=== PATIENT | male | born 1965 | race Caucasian/White ===

== ENCOUNTER 2019-11-09 13:06 | Outpatient (CLI) | payer BC, SELFPAY ==
--- NOTE | 2019-11-09 13:13 | XR_ITS ---
WS: [id number] Right knee, 2 views, 11/09/2019 Clinical Data: right knee pain Comparison: None. Findings: No fractures or dislocations are seen. The joint spaces are normal. The patella is intact. The soft t issues are unremarkable. There is a small exostosis of the medial proximal tibia at the diametaphyseal junction which may be s econdary to an old injury. XR/XR knee RT 1-2V [id number] Impression: Negative right knee.
--- NOTE | 2019-11-09 13:13 | XR_ITS ---
WS: [id number] Cervical spine, 3 views, 11/09/2019 Clinical Data: cervical radiculopathy Comparison: Lateral cervical spine, 05/01/2015. Findings: No compression fractures are seen. There is an anterior cervical disc fusion at C5-C7. Ther e is obliteration of the C5-C6 disc. Anterior inferior osteoarthritic spurring of the C3 and C4 verte bral bodies is noted. No prevertebral soft tissue swelling is present. The odontoid is normal. There is loss of the normal lordotic curvature. Soft tissues of neck in the lung apices are unremarkable. XR/XR cervical spine 3V* [id number] Impression: 1. Intact anterior cervical disc fusion at C5-C6 with obliteration of the disc. 2. Anterior inferior osteoarthritic spurring of the C3 and C4 vertebral bodies.
--- NOTE | 2019-11-09 13:13 | XR_ITS ---
WS: [id number] Left shoulder, 3 views, 11/09/2019 Clinical Data: pain Comparison: None. Findings: No fractures or dislocations are seen. The AC joint is normal. The adjacent left clavicle, left scapu la and ribs are normal. The soft tissues are unremarkable. XR/XR shoulder LT min 2V* [id number] Impression: Negative left shoulder.
== END 2019-11-09 13:07 | disposition home or self-care (01) ==
PROVIDERS: Family Provider Nurse Practitioner Family; PCP Family Medicine; Visit Provider Family Medicine
DX: M54.12 Radiculopathy, cervical region (principal); M47.892 Other spondylosis, cervical region; M25.561 Pain in right knee; M25.512 Pain in left shoulder; Z98.1 Arthrodesis status
CPT/HCPCS: 72040; 73030; 73560

== ENCOUNTER → 2020-04-23 09:18 | Outpatient (BNVA) | payer BC, SELFPAY | PROVIDERS: Family Provider Nurse Practitioner Family; PCP Family Medicine; Visit Provider Nurse Practitioner Family | DX: R31.9 Hematuria, unspecified (principal) | CPT/HCPCS: 81000 ==

== ENCOUNTER 2020-05-01 07:40 | Outpatient (CLI) | payer BC, SELFPAY ==
--- NOTE | 2020-05-01 08:00 | XR_ITS ---
WS: [id number] EXAM: ABDOMINAL KUB DATE OF EXAMINATION: 05/01/2020, 0 754 hour COMPARISON: Abdominal KUB from 03/28/2015 HISTORY: Patient is 55 years old with follow-up kidney stone. FINDINGS: Bowel gas pattern is normal. There are 2 small flecks of calcification in 2 locations may be a millim eter or 2 in size each in the upper aspect of the right kidney silhouette. Not seen on the prior exam . There is a calcification overlying the area of the left kidney silhouette superimposed over the T12 rib felt to represent a new calcification since the prior examination. Whether this is in the bowel or kidney is uncertain. Not quite a centimeter in size. No calcifications are seen over the course of the ureters other than what are considered to be phleboliths in the deep pelvis. XR/XR KUB [id number] IMPRESSION: 2 tiny flecks of calcifications overlying the upper right kidney silhouette. Ne w calcification overlying the left kidney silhouette superimposed overlying the left T12 rib about 1 cm in size. Question if this is in the bowel or kidney.
== END 2020-05-01 07:41 | disposition home or self-care (01) ==
PROVIDERS: PCP Nurse Practitioner Family; Visit Provider Nurse Practitioner Family
DX: Z87.442 Personal history of urinary calculi (principal); N20.0 Calculus of kidney
CPT/HCPCS: 74018; 80053; 81001; 88112

== ENCOUNTER → 2020-08-19 15:55 | Outpatient (BNVA) | payer BC, SELFPAY | PROVIDERS: PCP Nurse Practitioner Family; Referring Provider Nurse Practitioner Family; Visit Provider Podiatrist Foot & Ankle Surgery | DX: M19.072 Primary osteoarthritis, left ankle and foot (principal); M79.672 Pain in left foot | CPT/HCPCS: 73630 ==

== ENCOUNTER → 2020-09-16 10:11 | Outpatient (BNVA) | payer BC, SELFPAY | PROVIDERS: PCP Nurse Practitioner Family; Visit Provider Nurse Practitioner | DX: M54.9 Dorsalgia, unspecified (principal); R31.0 Gross hematuria | CPT/HCPCS: 81000; 87086 ==

== ENCOUNTER → 2021-02-28 14:59 | Outpatient (BNVA) | payer BC, SELFPAY | PROVIDERS: PCP Nurse Practitioner Family; Visit Provider Nurse Practitioner | DX: R39.9 Unspecified symptoms and signs involving the genitourinary system (principal) | CPT/HCPCS: 81000 ==

== ENCOUNTER 2021-05-21 10:17 | Outpatient (CLI) | payer BC, SELFPAY ==
--- NOTE | 2021-05-21 10:41 | XR_ITS ---
WS: [id number] KUB, AP view, 05/21/2021 Clinical Data: Abdominal pain, constipation Comparison: KUB, 05/01/2020. Findings: No abnormal intraabdominal masses are seen. There is no dilatated small bowel or evidence of obstruc tion. A faint calcification overlying the left kidney is unchanged. There may be a faint calcification over lying the right kidney XR/XR KUB [id number] Impression: Questionable bilateral renal calcifications.
== END 2021-05-21 10:18 | disposition home or self-care (01) ==
PROVIDERS: PCP Family Medicine Adult Medicine; Visit Provider Family Medicine
DX: R10.9 Unspecified abdominal pain (principal); K59.00 Constipation, unspecified; N20.0 Calculus of kidney
CPT/HCPCS: 74018

== ENCOUNTER → 2021-09-02 10:29 | Outpatient (BNVA) | payer BC, SELFPAY | PROVIDERS: PCP Family Medicine Adult Medicine; Visit Provider Nurse Practitioner Family | DX: Z20.822 Contact with and (suspected) exposure to COVID-19 (principal) | CPT/HCPCS: 87635 ==

== ENCOUNTER → 2021-09-09 10:41 | Outpatient (BNVA) | payer BC, SELFPAY | PROVIDERS: PCP Family Medicine Adult Medicine; Visit Provider Family Medicine Adult Medicine | DX: N20.0 Calculus of kidney (principal) | CPT/HCPCS: 81000 ==

== ENCOUNTER → 2021-09-10 07:22 | Outpatient (BNVA) | payer BC, SELFPAY | PROVIDERS: PCP Family Medicine Adult Medicine; Visit Provider Family Medicine Adult Medicine | DX: N20.0 Calculus of kidney (principal); E11.69 Type 2 diabetes mellitus with other specified complication; E66.9 Obesity, unspecified; E66.01 Morbid (severe) obesity due to excess calories; Z68.43 Body mass index [BMI] 50.0-59.9, adult; I10 Essential (primary) hypertension; N20.9 Urinary calculus, unspecified | CPT/HCPCS: 36416; 82962 ==

== ENCOUNTER 2021-12-10 11:57 | Emergency (ER) | payer BC, SELFPAY ==
[2021-12-10 12:32] VITALS: BP 182/101; PULSE 71; RESP 16; TEMP 36.6; O2SAT 96
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
[2021-12-10 12:50] VITALS: BP 182/101; PULSE 71; RESP 16; O2SAT 96
--- NOTE | 2021-12-10 12:52 | XR_ITS ---
WS: [id number] Cervical spine, 3 views, 12/10/2021 Clinical Data: neck pain Comparison: Cervical spine, 11/09/2019. Findings: No compression fractures are seen. The anterior cervical disc fusion at C5-6-6 remains stab le and there is loss of the disc space. There is anterior osteophyte formation at C3 and C4. The soft tissues of the neck and the lung apices are normal. XR/XR cervical spine 3V* [id number] Impression: 1. Intact anterior cervical disc fusion C5-C6. 2. Osteophytes C3 and C4.
== END 2021-12-10 13:43 | disposition home or self-care (01) ==
PROVIDERS: Emergency Provider Family Medicine; PCP Family Medicine Adult Medicine
DX: M54.2 Cervicalgia (principal); V57.0XXA Driver of pick-up truck or van injured in collision with fixed or stationary object in nontraffic accident, initial encounter; Z79.51 Long term (current) use of inhaled steroids; Z79.82 Long term (current) use of aspirin
CPT/HCPCS: 72040; 99282

== ENCOUNTER → 2022-01-30 16:24 | Outpatient (BNVA) | payer BC, SELFPAY | PROVIDERS: PCP Family Medicine Adult Medicine; Visit Provider Family Medicine Adult Medicine | DX: N39.0 Urinary tract infection, site not specified (principal) | CPT/HCPCS: 81000 ==

== ENCOUNTER 2022-04-22 16:29 | Emergency (ER) | payer BC, SELFPAY ==
--- NOTE | 2022-04-22 16:47 | ECG_ITS ---
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 Measurements Intervals [place] Rate: 71 P: 23 LA: 175 QRS: -43 QRSD: 114 T: 19 QT: 403 QTc: 441 Interpretive Statements SINUS RHYTHM LEFT AXIS DEVIATION [QRS AXIS < -30] PATTERN CONSISTENT WITH PULMONARY DISEASE MODERATE INTRAVENTRICULAR CONDUCTION DELAY [110+ ms QRS DURATION] No previous ECG available for comparison Electronically Signed On 04-22-2022 19:43:18 CDT by Bebeto Cano M.D. [id number] f
== END 2022-04-22 17:15 | disposition left against medical advice (07) ==
PROVIDERS: Emergency Provider Family Medicine; PCP Family Medicine Adult Medicine
DX: Z53.21 Procedure and treatment not carried out due to patient leaving prior to being seen by health care provider (principal); R07.9 Chest pain, unspecified
CPT/HCPCS: 93005

== ENCOUNTER 2022-04-26 09:47 | Emergency (ER) | payer BC, SELFPAY ==
[2022-04-26 10:00] VITALS: BP 204/112; PULSE 73; RESP 18; TEMP 36.6; O2SAT 95; BMI 45.4
[2022-04-26 10:03] VITALS: BP 131/67; PULSE 71; RESP 13
--- NOTE | 2022-04-26 10:03 | PC.NURSE ---
AO x4, C/O R hip/upper leg pain like siatic pain . then reported a fibalation in chest. denies sob and chest pain
--- NOTE | 2022-04-26 10:09 | PC.NURSE ---
patient stated leg pain started after walking dog and dog pulled leash. patient unsure if heart caused leg pain. HCP at bedside, reviewed EKG
--- NOTE | 2022-04-26 10:12 | ECG_ITS ---
[facility] Test Date: 2022-04-26 Pat Name: Katharine Mane Department: Room: Gender: Male Applications Coordinator: : 1965 Requested By: Jeffrey Kraft Order Number: [id number] Janet MD: Bebeto Cano M.D. Measurements Intervals [place] Rate: 76 P: 25 PA: 183 QRS: -41 QRSD: 102 T: 18 QT: 398 QTc: 449 Interpretive Statements SINUS RHYTHM LEFT AXIS DEVIATION [QRS AXIS < -30] PATTERN CONSISTENT WITH PULMONARY DISEASE Compared to ECG 04/22/2022 16:54:34 Intraventricular conduction delay no longer present Electronically Signed On 04-26-2022 13:16:48 CDT by Bebeto Cano M.D. [id number] f
[2022-04-26 10:18] VITALS: PULSE 67; RESP 19
--- NOTE | 2022-04-26 10:43 | W.ED.CHESTPA ---
HPI - Chest Pain General: Chief Complaint: Chest Pain Stated Complaint: Right leg pain Time Seen by Provider: 04/26/22 09:54 History of Present Illness: 56-year-old male presents with pain. Patient reports that couple days ago he was walking his dog jerked and he had pain in his right leg with some pain that shot down the leg and now he has pain in both legs. Patient reports he is concerned it might be his heart causing his chest pain because he was told his EKG was not normal patient was seen on 04/22/2022 with a multitude of symptoms with chest pain/discomfort that been going on for 4 weeks. At that time his EKG showed normal sinus rhythm with a pulmonary disease pattern. Patient has known pulmonary disease COPD. Patient had no acute cardiac changes. Patient's main complaint today is his low back pain. Associated symptoms: Deny abdominal pain, dyspnea, fever(s), nausea, palpitations or vomiting Review of Systems Const: Denies: fever(s) or chills Eyes: Denies: change in vision ENMT: Denies: throat pain or ear or mastoid pain Card: Denies: palpitations, irregular heart rhythm, edema or swelling of feet/ankles Resp: Denies: dyspnea, productive cough or wheezing GI: Denies: abdominal pain, nausea or vomiting Musc: Reports: back pain Skin/Breast: Denies: rash or pruritus Neuro: Denies: headache(s), numbness in extremities or weakness in extremities All/Imm: Denies: urticaria PFSH ED PFSH: Medical History (Updated 04/26/22 @ 11:57 by Jeffrey Kraft DO) Allergic rhinitis due to allergen Anxiety disorder, unspecified Arthritis Chronic gastroesophageal reflux disease Constipation due to slow transit COVID-19 COVID Positive 09/02/2021 Diabetes mellitus type 2 in obese Diabetic neuropathy Diverticulosis ECG abnormal Gross hematuria Hallux rigidus Hx of renal calculi Hypertension Left shoulder pain Memory changes Morbid obesity with BMI of 50.0-59.9, adult Periodic limb movement disorder (PLMD) Renal insufficiency Rotator cuff disorder Strain of muscle and tendon of back wall of thorax, initial encounter Systemic candidiasis Umbilical hernia Urolithiasis UTI (urinary tract infection) 09/03/2021 Cipro 750 BID UTI (urinary tract infection) Ventral hernia Surgical History History of carpal tunnel surgery of left wrist 2010 Hx of hernia repair Hx of knee surgery growth removal Hx of neck surgery Family History Grandmother Cancer Breast Osteoarthritis Mother Cancer Lung Hypertension Bleeding disorder Heart disease Sister Bleeding disorder Grandfather Osteoarthritis Social History Smoking and tobacco status: current every day smoker Second hand smoke exposure: No Smoking risk assessment/counseling performed?: No Alcohol intake: never Desire information about alcohol rehabilitation?: No Counseling given: No Desire information about substance/drug rehabilitation?: No Counseling given: No Household members: spouse Housing: House Marital status: Physical Exam Const: COMMON NORMALS: no acute distress and patient oriented x3 NUTRITIONAL APPEARANCE: obese HENMT: COMMON NORMALS: hearing grossly normal bilaterally and moist oral mucous membranes Neck/C-Spine: COMMON NORMALS: full ROM and supple Resp: COMMON NORMALS: normal respiratory effort, No use of accessory muscles and clear to auscultation bilaterally EFFORT & INSPECTION: Yes able to speak in complete sentences AUSCULTATION: clear to auscultation bilaterally Cardio: COMMON NORMALS: regular rate and regular rhythm RATE: regular rate RHYTHM: regular rhythm GI: COMMON NORMALS: Normal to inspection, nondistended, normoactive bowel sounds present and Soft to palpation PALPATION: Yes Soft to palpation Back/Pelvis: LUMBAR SPINE/LOWER BACK: Yes normal to inspection, Yes pain with ROM, Yes paraspinal muscle tenderness and Yes straight leg raise negative bilaterally Extremity: COMMON NORMALS: normal to inspection and full ROM Neuro: COMMON NORMALS: patient oriented x3, CN's II-XII intact bilaterally and no focal motor deficits Skin: COMMON NORMALS: no rashes or lesions noted GENERAL SKIN EXAM: no rashes or lesions noted Course Vital Signs: Vital signs: Vital Signs Temperature 97.8 F 04/26/22 11:33 Pulse Rate 67 04/26/22 11:33 Respiratory Rate 20 H 04/26/22 11:33 Blood Pressure 146/94 04/26/22 11:40 Pulse Oximetry 96 04/26/22 11:40 MDM - Chest Pain Medical Decision Making Patient with low back strain. Patient longstanding chest pain is likely due to underlying COPD that poorly treated with underlying sleep apnea. Patient with negative EKG for any acute cardiac changes. Patient negative troponin. Patient with lumbar muscle strain. Patient has Flexeril at home that he should restart. Recommend he take naproxen in addition to this. He can use topical lidocaine and Voltaren cream. Patient stable and discharged home Lab Data : 04/26/22 11:14 04/26/22 11:14 Laboratory Results WBC 7.1 10^3/uL (4.0-10.0) 04/26/22 11:14 RBC 5.09 10^6/uL (4.1-5.3) 04/26/22 11:14 Hgb 15.6 g/dL (11.7-16.6) 04/26/22 11:14 Hct 46.2 % (42.0-52.0) 04/26/22 11:14 MCV 90.8 fl (80-94) 04/26/22 11:14 MCH 30.6 pg (28.0-34.0) 04/26/22 11:14 MCHC 33.8 g/dL (30.0-36.0) 04/26/22 11:14 RDW 13.0 % (12.1-15.1) 04/26/22 11:14 Plt Count 243 10^3/cmm (130-400) 04/26/22 11:14 MPV 10.2 fL (7.4-10.4) 04/26/22 11:14 Neut % (Auto) 64.9 % 04/26/22 11:14 Lymph % (Auto) 26.9 % 04/26/22 11:14 Centre % (Auto) 7.4 % 04/26/22 11:14 Eos % (Auto) 0.4 % 04/26/22 11:14 Baso % (Auto) 0.3 % 04/26/22 11:14 Neut # (Auto) 4.58 10^3/uL (1.8-7.7) 04/26/22 11:14 Lymph # (Auto) 1.9 10^3/uL (0.8-4.8) 04/26/22 11:14 Centre # (Auto) 0.5 10^3/uL (0.2-0.9) 04/26/22 11:14 Eos # (Auto) 0.0 10^3/uL (0.0-0.8) 04/26/22 11:14 Baso # (Auto) 0.0 10^3/uL (0.0-0.1) 04/26/22 11:14 Nucleated RBC % (auto) 0 % 04/26/22 11:14 Nucleated RBCs # 0.0 /100WBC 04/26/22 11:14 Sodium 138 mmol/L (136-145) 04/26/22 11:14 Chloride 101 mmol/L (98-107) 04/26/22 11:14 Carbon Dioxide 23 mmol/L (22-29) 04/26/22 11:14 BUN 16 mg/dL (6-20) 04/26/22 11:14 Creatinine 0.8 mg/dL (0.7-1.2) 04/26/22 11:14 GFR Calculation 100.0 mL/min (90-130) 04/26/22 11:14 Calculated Osmolality 293 mOsm/kg (285-295) 04/26/22 11:14 Calcium 9.8 mg/dL (8.5-10.5) 04/26/22 11:14 Total Bilirubin 0.4 mg/dL (0.15-1.2) 04/26/22 11:14 AST 17 U/L (0-40) 04/26/22 11:14 ALT 27 U/L (0-41) 04/26/22 11:14 Alkaline Phosphatase 81 U/L (40-130) 04/26/22 11:14 Troponin T Baseline 6 ng/L (0-15) 04/26/22 11:14 Total Protein 7.4 g/dL (6.6-8.7) 04/26/22 11:14 Albumin 4.5 g/dL (3.5-5.2) 04/26/22 11:14 Globulin 2.9 g/dL (1.3-4.6) 04/26/22 11:14 EKG Data EKG 1: I personally reviewed and interpreted this EKG as follows: EKG interpretation date: 04/26/22 EKG interpretation time: 10:07 Interpretation: Heart rate 76, MA 183, QRS 102, pulmonary disease pattern, unchanged from 04/22/2022. No acute ST or T wave changes Discharge Plan Discharge Patient Disposition: Home Clinical Impression: Strain of muscle, fascia and tendon of lower back, initial encounter, COPD (chronic obstructive pulmonary disease) Condition: Stable Prescriptions: No Action albuterol sulfate [Ventolin HFA] 90 mcg/actuation HFA aerosol inhaler 2 puff inhalation Q6H PRN (Reason: shortness of breath or wheezing) Qty: 8.5 0RF cinnamon bark [Cinnamon] 500 mg capsule 500 mg PO DAILY (DME) blood-glucose meter [Contour Next EZ Meter] Kit See Rx Instructions .ROUTE .MEDSUPPLY Qty: 1 0RF Rx Instructions: As directed (DME) Contour Next Test Strips Strip See Rx Instructions .ROUTE .MEDSUPPLY Qty: 50 2RF Rx Instructions: test daily before breakfast Lactobacillus acidophilus [Acidophilus] PO DAILY baclofen 20 mg tablet 20 mg PO TID Qty: 30 1RF diclofenac sodium 75 mg tablet,delayed release (DR/EC) 75 mg PO BID Qty: 30 1RF fluticasone propionate 50 mcg/actuation spray,suspension 2 spray intranasal BID Qty: 32 1RF Rx Instructions: administer into each nostril loratadine [Claritin] 10 mg tablet 10 mg PO DAILY Qty: 90 2RF aspirin 81 mg tablet,delayed release (DR/EC) See Rx Instructions .ROUTE .COMPLEX Qty: 90 0RF Dose Instruction: TAKE 1 TABLET BY MOUTH DAILY Rx Instructions: TAKE 1 TABLET BY MOUTH DAILY clotrimazole-betamethasone 1-0.05 % cream 1 applic topical BID Qty: 45 1RF (DME) lancets [Microlet Lancet] Misc See Rx Instructions .Route Qty: 100 11RF Rx Instructions: As directed, check blood sugar, once,daily. alprazolam 0.5 mg tablet 0.5 mg PO DAILY PRN (Reason: anxiety attacks) 30 Days Qty: 30 5RF irbesartan 75 mg tablet 75 mg PO DAILY Qty: 30 5RF metformin 500 mg tablet See Rx Instructions .ROUTE .COMPLEX Qty: 60 5RF Dose Instruction: TAKE 1 TABLET BY MOUTH TWICE DAILY FOR DIABETES Rx Instructions: TAKE 1 TABLET BY MOUTH TWICE DAILY FOR DIABETES Dexilant 30 mg capsule,biphase delayed releas See Rx Instructions .ROUTE .COMPLEX Qty: 270 1RF Dose Instruction: TAKE ONE CAPSULE BY MOUTH DAILY Rx Instructions: TAKE ONE CAPSULE BY MOUTH DAILY Discharge Orders: Discharge ED (Routine); Ordered 04/26/22 Ordered By: Jeffrey Kraft Referrals: Jacky Degroot MD [Primary Care Provider] - Discharge Diet: Usual diet Discharge Activity: Increase activity as tolerated Patient Instructions: Opioid Safety Activity Restrictions/Additional Instructions: 4% topical lidocaine with menthol to your lower back as directed on package use as directed Voltaren/diclofenac cream or gel use as directed on package to low back Please follow-up with your primary care provider and consider getting tested for sleep apnea Please start your already prescribed muscle relaxants 3 times daily or as prescribed Coding Level of Care Code ED Motion Picture Equipment Machinist for Chg Fwd Exam Comprehensive
[2022-04-26 11:23] LABS: Basophils % 0.3 %; Eosinophils % 0.4 %; Hematocrit 46.2 % (42.0-52.0); Hemoglobin 15.6 g/dL (11.7-16.6); Lymphocytes # 1.9 10^3/uL (0.8-4.8); Lymphocytes % 26.9 %; Mean Corpuscular HGB Conc 33.8 g/dL (30.0-36.0); Mean Corpuscular Hemoglobin 30.6 pg (28.0-34.0); Mean Corpuscular Volume 90.8 fl (80-94); Mean Platelet Volume 10.2 fL (7.4-10.4); Monocytes # 0.5 10^3/uL (0.2-0.9); Monocytes % 7.4 %; Neutrophils # 4.58 10^3/uL (1.8-7.7); Neutrophils % 64.9 %; Nucleated Red Blood Cells % 0 %; Platelet Count 243 10^3/cmm (130-400); Red Blood Count 5.09 10^6/uL (4.1-5.3); White Blood Count 7.1 10^3/uL (4.0-10.0)
[2022-04-26] MEDS: ketorolac 30 mg/mL INJ 15 MG IVP (11:24)
[2022-04-26] MEDS: orphenadrine 30 mg/mL Inj 2 mL 60 MG IVP (11:24)
[2022-04-26 11:33] VITALS: BP 154/80; PULSE 67; RESP 20; TEMP 36.6; O2SAT 95
[2022-04-26 11:40] VITALS: BP 146/94; O2SAT 96
[2022-04-26 11:46] LABS: Troponin(5th) Baseline 6 ng/L (0-15)
[2022-04-26 11:52] LABS: Alanine Aminotransferase 27 U/L (0-41); Albumin Level 4.5 g/dL (3.5-5.2); Alkaline Phosphatase 81 U/L (40-130); Aspartate Amino Transferase 17 U/L (0-40); Blood Urea Nitrogen 16 mg/dL (6-20); Calcium 9.8 mg/dL (8.5-10.5); Carbon Dioxide 23 mmol/L (22-29); Chloride 101 mmol/L (98-107); Globulin 2.9 g/dL (1.3-4.6); Glucose 207 mg/dL (65-115); Osmolality Calculated 293 mOsm/kg (285-295); Sodium 138 mmol/L (136-145); Total Bilirubin 0.4 mg/dL (0.15-1.2); Total Protein 7.4 g/dL (6.6-8.7)
[2022-04-26 11:57] LABS: Anion Gap 18.5 (5-19); Potassium 4.5 mmol/L (3.5-5.1)
[2022-04-26] MEDS: HYDROcodone-acetaminophen 5-325 mg Tablet 1 TAB PO (12:13)
--- NOTE | 2022-04-26 12:15 | PC.NURSE ---
pain relieved after ordered medications. patient requested one more med prior to d/c, hcp put in hydro one time
--- NOTE | 2022-04-26 12:20 | PC.NURSE ---
All D/C instructions educated to patient, patient signed D/C form
--- NOTE | 2022-04-26 12:27 | PC.NURSE ---
patient melecio at this time, transported home by son
== END 2022-04-26 12:29 | disposition home or self-care (01) ==
PROVIDERS: Emergency Provider Student in an Organized Health Care Education/Training Program; PCP Family Medicine Adult Medicine
DX: S39.012A Strain of muscle, fascia and tendon of lower back, initial encounter (principal); J44.9 Chronic obstructive pulmonary disease, unspecified; Z79.82 Long term (current) use of aspirin; Z79.84 Long term (current) use of oral hypoglycemic drugs; F17.210 Nicotine dependence, cigarettes, uncomplicated; E11.9 Type 2 diabetes mellitus without complications; I10 Essential (primary) hypertension; X50.9XXA Other and unspecified overexertion or strenuous movements or postures, initial encounter
CPT/HCPCS: 80053; 84484; 85025; 93005; 96374; 96375; 99285; J1885; J2360

== ENCOUNTER → 2022-09-29 16:24 | Outpatient (BNVA) | payer BC, SELFPAY | PROVIDERS: PCP Family Medicine Adult Medicine; Visit Provider Emergency Medicine | DX: R39.9 Unspecified symptoms and signs involving the genitourinary system (principal); N30.01 Acute cystitis with hematuria | CPT/HCPCS: 81000 ==

== ENCOUNTER → 2022-10-19 07:50 | Outpatient (BNVA) | payer BC, SELFPAY | PROVIDERS: PCP Family Medicine Adult Medicine; Visit Provider Family Medicine Adult Medicine | DX: K57.90 Diverticulosis of intestine, part unspecified, without perforation or abscess without bleeding (principal); R10.9 Unspecified abdominal pain; E11.69 Type 2 diabetes mellitus with other specified complication; E66.9 Obesity, unspecified; J40 Bronchitis, not specified as acute or chronic; E66.01 Morbid (severe) obesity due to excess calories; I10 Essential (primary) hypertension; Z68.43 Body mass index [BMI] 50.0-59.9, adult; J06.9 Acute upper respiratory infection, unspecified | CPT/HCPCS: 83036; 84443; 86003; 86008 ==

== ENCOUNTER → 2023-02-04 13:23 | Outpatient (BNVA) | payer BC, SELFPAY | PROVIDERS: PCP Family Medicine Adult Medicine; Visit Provider Family Medicine Adult Medicine | DX: I10 Essential (primary) hypertension (principal); K21.9 Gastro-esophageal reflux disease without esophagitis; E11.69 Type 2 diabetes mellitus with other specified complication; E66.9 Obesity, unspecified; B37.2 Candidiasis of skin and nail; E66.01 Morbid (severe) obesity due to excess calories; Z68.43 Body mass index [BMI] 50.0-59.9, adult; F41.9 Anxiety disorder, unspecified; E11.40 Type 2 diabetes mellitus with diabetic neuropathy, unspecified | CPT/HCPCS: 80053; 83036; 84443; 85025 ==